=== PATIENT | male | born 1950 | race Caucasian/White ===

== ENCOUNTER → 2017-10-22 | Outpatient (CLI) | payer OTHER | END | disposition home or self-care (01) | LOC: PCVCIMAG 10:20 | DX: I10 Essential (primary) hypertension (principal); E11.9 Type 2 diabetes mellitus without complications; E78.5 Hyperlipidemia, unspecified | CPT/HCPCS: 36415; 76770; 93975 ==

== ENCOUNTER → 2018-04-11 | Outpatient (CLI) | payer OTHER ==
--- NOTE | 2018-04-11 10:13 | PCVCIMAG ---
APPROVED REPORT Study performed: 04/11/2018 08:27:06 EXAM: Comprehensive 2D, Doppler, and color-flow Echocardiogram Patient Location: Echo lab Room #: 2Status: routine BSA: 1.87 HR: 72 bpmBP: 146/84 mmHg Rhythm: NSR Other Information Study Quality: Good Risk Factors: Cardiac Risk Factors: HTN, Hyperlipidemia Indications CAD Hypertension/HDD S/P stent LAD 2D Dimensions IVSd: 9.41 (7-11mm)LVOT Diam: 23.35 (18-24mm) LVDd: 48.86 mm PWd: 8.11 (7-11mm)Ascending Ao: 33.80 (22-36mm) LVDs: 31.25 (25-40mm) Left Atrium: 35.29 (27-40mm) Aortic Root: 30.28 mm LV Single Plane 4CH: 58.88 % LV Single Plane 2CH: 63.99 % Biplane EF: 61.0 % Volumes Left Atrial Volume (Systole) Single Plane 4CH: 55.48 mLSingle Plane 2CH: 32.54 mL Biplane LA Volume: 44.00 mLLA ESV Index: 24.00 mL/m2 Aortic Valve AoV Peak Jefry.: 1.90 m/s AO Peak Gr.: 15.11 mmHgLVOT Max P.58 mmHg AO Mean Gr.: 8.46 mmHg AO V2 Mean: 1.39 m/sLVOT Max V: 0.95 m/s AO V2 VTI: 43.40 cm VU Vmax: 2.14 cm2 Mitral Valve E/A Ratio: 0.8 MV Decel. Time: 198.36 ms MV E Max Jefry.: 0.67 m/s MV A Jefry.: 0.87 m/s IVRT: 117.65 ms TDI E/Lateral E': 7.44E/Medial E': 13.40 Medial E' Jefry.: 0.05 m/s Lateral E' Jefry.: 0.09 m/s Pulmonary Valve PV Peak Jfery.: 1.16 m/sPV Peak Gr.: 5.41 mmHg Pulmonary Vein P Vein S: 0.63 m/sP Vein A: 0.39 m/s P Vein D: 0.41 m/sP Vein A Dur.: 90.0 msec P Vein S/D Ratio: 1.54 Tricuspid Valve TR Peak Jefry.: 1.55 m/s TR Peak Gr.: 9.59 mmHg TV Vmax: 0.68 m/sPA Pressure: 17.00 mmHg Left Ventricle The left ventricle is normal size. There is normal LV segmental wall motion. There is normal left ventricular wall thickness. Left ventricular systolic function is normal. The left ventricular ejection fraction is within the normal range. LVEF is 60-65%. Grade I - abnormal relaxation pattern. Right Ventricle The right ventricle is normal size. The right ventricular systolic function is normal. Atria The left atrium size is normal. The right atrium size is normal. Aortic Valve Mild aortic valve sclerosis. No aortic regurgitation is present. There is no aortic valvular stenosis. Mitral Valve The mitral valve is normal in structure. There is no mitral valve regurgitation noted. No evidence of mitral valve stenosis. Tricuspid Valve The tricuspid valve is normal in structure. There is no tricuspid valve regurgitation noted. Pulmonic Valve The pulmonary valve is normal in structure. There is no pulmonic valvular regurgitation. Great Vessels The aortic root is normal in size. The ascending aorta is normal in size. Aortic arch is normal in caliber. IVC is normal in size and collapses >50% with inspiration. Pericardium There is no pericardial effusion. There is no pleural effusion. <Conclusion> The left ventricle is normal size. There is normal left ventricular wall thickness. Left ventricular systolic function is normal. Grade I - abnormal relaxation pattern. The right ventricle is normal size. The left atrium size is normal. Mild aortic valve sclerosis. The mitral valve is normal in structure.
== END | disposition home or self-care (01) ==
LOC: PCVCIMAG 10:19
PROVIDERS: ATTEND Internal Medicine Cardiovascular Disease
DX: I25.10 Atherosclerotic heart disease of native coronary artery without angina pectoris (principal); I10 Essential (primary) hypertension; E78.5 Hyperlipidemia, unspecified; I35.0 Nonrheumatic aortic (valve) stenosis
CPT/HCPCS: 93306